=== PATIENT | female | born 1975 | race Caucasian/White ===

== ENCOUNTER → 2019-08-14 | Outpatient (CLI) | payer BC ==
[~2019-08-14] MED LIST: BASAGLAR K100 UNIT/2 SC; IBUP800 PO; INVOKANA300 MG PO; JOLESSA 0.15 M1 EACH PO; METF500 PO; Percocet 5-3251 EACH PO
[2019-08-17 10:06] LABS: COTININE 753.4 ng/mL (.); NICOTINE 1112.7 ng/mL (.)
== END | disposition home or self-care (01) ==
LOC: LAB SHORT 09:57 → LAB 09:57
PROVIDERS: Physician Assistant Medical
DX: Z01.812 Encounter for preprocedural laboratory examination (principal)
CPT/HCPCS: G0480

== ENCOUNTER 2019-08-15 05:51 | Inpatient (IN) | payer BC ==
[~2019-08-15] VITALS: Ht 175.3 cm; Wt 96.6 kg
[~2019-08-15 05:51] MED LIST changes: -BASAGLAR K100 UNIT/2 SC; -IBUP800 PO; -Percocet 5-3251 EACH PO
[2019-08-15] MEDS ORDERED: BASAGLAR K100 UNIT/2 SC (06:55)
--- NOTE | 2019-08-15 07:02 | NUR ---
History, Chart, Medications and Allergies reviewed before start of procedure. Patient confirms NPO status and agrees with scheduled surgery. Surgical site prepped with 2% Chlorhexidine cloth wipe. Pre-Op teaching done. Pt verbalizes understanding. Patient reports completing Chlorhexadine shower X2 prior to admission to hospital. LS WITH CRACKLES IN LEFT BASE OTHERWISE CLEAR
--- NOTE | 2019-08-15 10:39 | NUR ---
PACU TO SURGICAL FLOOR PT ARRIVED FROM PACU TO UNIT VIA GURNEY AT 1020 TODAY S/P SELAM. PT A/OX4 W/ VSS. SPO2 AT 97% ON 3L NC, WILL WEAN TOLERATED. DENIES N/V, SOB, CHEST PAIN, OR DISCOMFORT. REPORTS PAIN AT TOLERABLE 2/10. ABLE TO WIGGLE FINGERS/TOES AND MOVE ALL EXTREMITIES. ROOM ORIENTATION, I.S. USE, AND TURN/COUGH INSTRUCTION GIVEN. HAS FAMILY AT BEDSIDE. IS CURRENTLY RESTING IN BED WITH IVF RUNNING AND CALL LIGHT IN REACH.
[2019-08-15 11:14] LABS: BASOPHILS ABSOLUTE AUTO 0.04 K/mm3 (0.00-0.23); BASOPHILS PERCENT AUTO 0 % (0-2); EOSINOPHILS ABSOLUTE AUTO 0.04 K/mm3 (0.00-0.68); EOSINOPHILS PERCENT AUTO 0 % (0-6); Hematocrit 33.3 % (33.0-51.0); Hemoglobin 9.3 g/dL (11.5-16.0); IMMATURE GRAN ABSOLUTE AUTO 0.05 K/mm3 (0.00-0.10); IMMATURE GRAN PERCENT AUTO 0 % (0-1); LYMPHOCYTES ABSOLUTE AUTO 0.67 K/mm3 (0.84-5.20); LYMPHOCYTES PERCENT AUTO 5 % (21-46); MONOCYTES ABSOLUTE AUTO 0.14 K/mm3 (0.16-1.47); MONOCYTES PERCENT AUTO 1 % (4-13); Mean Corpuscular HGB 20.9 pg (26.0-34.0); Mean Corpuscular HGB Conc 27.9 g/dL (31.5-36.5); Mean Corpuscular Volume 75 fL (80-100); Mean Platelet Volume 10.6 fL (9.1-12.4); NEUTROPHILS ABSOLUTE AUTO 13.07 K/mm3 (1.96-9.15); NEUTROPHILS PERCENT AUTO 93 % (41-73); Platelet Count 235 K/mm3 (150-400); RDW Coefficient Variation 17.2 % (11.7-14.2); Red Blood Cell Count 4.45 M/mm3 (3.80-5.20); White Blood Cell Count 14.01 K/mm3 (4.00-11.30)
--- NOTE | 2019-08-15 13:46 | NUR ---
08/15/19 1346 Dairela Oseguera VERIFICATIONS: EDIT CHART.
--- NOTE | 2019-08-15 18:35 | NUR ---
SHIFT SUMMARY POD 0 S/P SELAM; ABD DRESSING C/D/I WITH SMALL AMOUNT OF SS DRAINAGE AND SCANT AMOUNT OF VAGINAL DRAINAGE NOTED. IS A/OX4 WITH VSS. PAIN MANAGED WITH TORADOL AND 1 PERCOCET. TOLERATING REGULAR ADA DIET, DENIES N/V. AMBULATED TO BATHROOM AND BACK WITH STEADY GATE. COON IN PLACE DRAINING YELLOW URINE. IVF RUNNING PER ORDERS. IS CURRENTLY RESTING IN BED WHILE WATCHING TV WITH CALL LIGHT IN REACH. WILL CONTINUE TO MONITOR AND GIVE REPORT TO ONCOMING RN.
[2019-08-16 04:55] LABS: BASOPHILS ABSOLUTE AUTO 0.02 K/mm3 (0.00-0.23); BASOPHILS PERCENT AUTO 0 % (0-2); EOSINOPHILS ABSOLUTE AUTO 0.01 K/mm3 (0.00-0.68); EOSINOPHILS PERCENT AUTO 0 % (0-6); Hemoglobin 7.9 g/dL (11.5-16.0); IMMATURE GRAN ABSOLUTE AUTO 0.04 K/mm3 (0.00-0.10); IMMATURE GRAN PERCENT AUTO 0 % (0-1); LYMPHOCYTES ABSOLUTE AUTO 1.68 K/mm3 (0.84-5.20); LYMPHOCYTES PERCENT AUTO 16 % (21-46); MONOCYTES ABSOLUTE AUTO 0.74 K/mm3 (0.16-1.47); MONOCYTES PERCENT AUTO 7 % (4-13); Mean Corpuscular HGB 20.7 pg (26.0-34.0); Mean Corpuscular HGB Conc 28.2 g/dL (31.5-36.5); Mean Corpuscular Volume 74 fL (80-100); NEUTROPHILS ABSOLUTE AUTO 8.12 K/mm3 (1.96-9.15); NEUTROPHILS PERCENT AUTO 77 % (41-73); Platelet Count 224 K/mm3 (150-400); RDW Standard Deviation 45.1 fL (35.1-46.3); Red Blood Cell Count 3.81 M/mm3 (3.80-5.20); White Blood Cell Count 10.61 K/mm3 (4.00-11.30)
--- NOTE | 2019-08-16 07:19 | NUR ---
POD 1 S/P SELAM. PT VSS T/O NIGHT. DRESSING INTACT W/SMALL AMT SHADOWING. PT HAVING SMALL AMT SMAL LAMT VAGIANL BLEEDING. PAIN MGD W/SCHEDULED TORADOL AND 1 PERCOCET W/REP RELIEF. PT DENISE REG PO, NO C/O N/V, REP NO FLATUS YET, BT MORE ACTIVE THIS AM. COON CATH D/C THIS AM, AWAITING ALEX VOID. PT USING CALL LIGHT FOR ASSISTANCE, REP GIVEN TO DAY RN.
[2019-08-16] MEDS ORDERED: Percocet 5-3251 EACH PO (18:25)
[2019-08-16] MEDS ORDERED: IBUP800 PO (18:27)
--- NOTE | 2019-08-16 19:45 | NUR ---
DISCHARGE: PACKET PRINTED AND PT EDUCATED. SENT WITH SCRIPT. LEFT UNIT VIA WHEELCHAIR WITH ULISES BROOKS.
== END 2019-08-16 18:30 | disposition home or self-care (01) | DRG 743 ==
LOC: SURS 05:51 → PRE IP 07:30 → SURS 10:18
PROVIDERS: ADMIT Obstetrics & Gynecology
PROC: 0UB10ZZ Excision of Left Ovary, Open Approach (ICD-10-PCS; 2019-08-15)
PROC: 0UT90ZZ Resection of Uterus, Open Approach (ICD-10-PCS; principal; 2019-08-15 07:30)
PROC: 0UT70ZZ Resection of Bilateral Fallopian Tubes, Open Approach (ICD-10-PCS; 2019-08-15 07:30)
PROC: 0UT00ZZ Resection of Right Ovary, Open Approach (ICD-10-PCS; 2019-08-15 07:30)
DX: D25.9 Leiomyoma of uterus, unspecified (principal); N83.201 Unspecified ovarian cyst, right side; N83.202 Unspecified ovarian cyst, left side; N92.0 Excessive and frequent menstruation with regular cycle; E11.9 Type 2 diabetes mellitus without complications; F32.9 Major depressive disorder, single episode, unspecified; F43.10 Post-traumatic stress disorder, unspecified; E66.9 Obesity, unspecified; Z87.891 Personal history of nicotine dependence
CPT/HCPCS: 36415; 82947; 85025; A9270-GY; J0690; J1100; J1885; J2250; J2405; J2704; J3010; J7120

== ENCOUNTER → 2022-01-13 | Outpatient (CLI) | payer OTHER ==
[~2022-01-13] MED LIST changes: +BASAGLAR K100 UNIT/2 SC; +IBUP800 PO; +Percocet 5-3251 EACH PO
[2022-01-14 15:19] LABS: Adenovirus F 40/41 Not Detected (NOT DETECT); Astrovirus Not Detected (NOT DETECT); Campylobacter Sp Not Detected (NOT DETECT); Cryptosporidium Not Detected (NOT DETECT); Cyclospora Cayetanensis Not Detected (NOT DETECT); E. Coli O157 Not Detected (NOT DETECT); Entamoeba Histolytica Not Detected (NOT DETECT); Enteroaggregative E. coli-EAEC Not Detected (NOT DETECT); Enteropathogenic E. coli-EPEC Not Detected (NOT DETECT); Enterotoxigenic E. coli-ETEC Not Detected (NOT DETECT); Giardia Lamblia Not Detected (NOT DETECT); Norovirus GI/GII Not Detected (NOT DETECT); Plesiomonas Shigelloides Not Detected (NOT DETECT); Rotavirus A Not Detected (NOT DETECT); Salmonella Sp Not Detected (NOT DETECT); Sapovirus Not Detected (NOT DETECT); Shiga Toxin-prod E. coli-STEC Not Detected (NOT DETECT); Shigella/Enteroin E. coli-EIEC Not Detected (NOT DETECT); Vibrio Cholerae Not Detected (NOT DETECT); Vibrio Sp Not Detected (NOT DETECT); Yersinia Enterocolitica Not Detected (NOT DETECT)
== END | disposition home or self-care (01) ==
LOC: LAB 11:37 → LAB SHORT 11:37
PROVIDERS: Family Medicine
DX: R19.7 Diarrhea, unspecified (principal)
CPT/HCPCS: 87324; 87507

== ENCOUNTER → 2022-08-15 | Outpatient (CLI) | payer OTHER ==
[2022-08-16 14:48] LABS: Adenovirus F 40/41 Not Detected (NOT DETECT); Astrovirus Not Detected (NOT DETECT); Campylobacter Sp Not Detected (NOT DETECT); Cryptosporidium Not Detected (NOT DETECT); Cyclospora Cayetanensis Not Detected (NOT DETECT); E. Coli O157 Not Detected (NOT DETECT); Entamoeba Histolytica Not Detected (NOT DETECT); Enteroaggregative E. coli-EAEC Not Detected (NOT DETECT); Enteropathogenic E. coli-EPEC Detected (NOT DETECT); Enterotoxigenic E. coli-ETEC Not Detected (NOT DETECT); Giardia Lamblia Not Detected (NOT DETECT); Norovirus GI/GII Not Detected (NOT DETECT); Plesiomonas Shigelloides Not Detected (NOT DETECT); Rotavirus A Not Detected (NOT DETECT); Salmonella Sp Not Detected (NOT DETECT); Sapovirus Not Detected (NOT DETECT); Shiga Toxin-prod E. coli-STEC Not Detected (NOT DETECT); Shigella/Enteroin E. coli-EIEC Not Detected (NOT DETECT); Vibrio Cholerae Not Detected (NOT DETECT); Vibrio Sp Not Detected (NOT DETECT); Yersinia Enterocolitica Not Detected (NOT DETECT)
== END | disposition home or self-care (01) ==
LOC: LAB SHORT 10:54
PROVIDERS: Internal Medicine Gastroenterology
DX: R19.7 Diarrhea, unspecified (principal)
CPT/HCPCS: 87507